=== PATIENT | female | born 1970 | race Caucasian/White ===

== ENCOUNTER → 2016-06-08 | Outpatient (CLI) | payer BC ==
[2016-05-11 09:07] VITALS: BP 128/72
== END ==
LOC: LAB 15:20
PROVIDERS: ATTEND Nurse Practitioner Family
DX: R30.0 Dysuria (principal)
CPT/HCPCS: 87086

== ENCOUNTER → 2016-09-29 | Outpatient (CLI) | payer BC ==
[2016-05-11 09:07] VITALS: BP 128/72
--- NOTE | 2016-09-29 13:03 | MG ---
HISTORY: SCREENING Comparison: 01/18/2011 FINDINGS: Bilateral CC and MLO projections of the right and left breast were obtained. Scattered fibroglandul ar tissue is seen to be present. No significant architectural distortion, mass or clustered microca lcifications can be observed to suggest malignancy. No skin thickening or nipple retraction is appr eciated. No pathological lymphadenopathy can be identified. IMPRESSION: NO RADIOGRAPHIC EVIDENCE OF MALIGNANCY. ACR CATEGORY I - NEGATIVE EXAM. FOLLOW-UP EXAM 1 YEAR. Diagnostic CAD was utilized and reviewed. * 0 (ZERO) - ASSESSMENT INCOMPLETE; ADDITIONAL IMAGING IS NEEDED. * 1/ (ONE) - NEGATIVE. * 2/II (TWO) - BENIGN FINDINGS. * 3/III (THREE) - PROBABLY BENIGN FINDING; SHORT INTERVAL FOLLOW-UP SUGGESTED. * 4/IV (FOUR) - SUSPICIOUS ABNORMALITY; BIOPSY SHOULD BE CONSIDERED. * 5/V - HIGHLY SUSPICIOUS OF MALIGNANCY; BIOPSY SHOULD BE PERFORMED. A NEGATIVE X-RAY REPORT SHOULD NOT DELAY BIOPSY IF A DOMINANT OR CLINICALLY SUSPICIOUS MASS IS PRESENT; 4 TO 8 PERCENT OF CANCERS ARE NOT IDENTIFIED BY X-RAY. A NEG ATIVE REPORT MAY REINFORCE THE CLINICAL IMPRESSION. ADENOSIS AND DENSE BREASTS MAY OBSCURE AN UNDER LYING NEOPLASM. Reported By:
--- NOTE | 2016-09-29 13:37 | US ---
HISTORY: Thyroid nodule Study: Ultrasound of the thyroid Comparison: November 12, 2014 Technique: Multiple zuniga scale images of the thyroid were obtained. Findings: The right lobe of the thyroid measures 5.5 x 2.4 x 1.8 cm. An approximate 1.8 x 2.1 x 2.6 cm cyst/cy stic appearing nodule is noted within the right lobe of the thyroid and on prior exam measured 1.3 x 2.1 cm. The larger size of the right lobe of the thyroid when compared to the left is at least in p art due to the above-mentioned cyst/nodule. The left lobe of the thyroid measures 2.8 x 1.6 x 1.2 cm. The left lobe of the thyroid is relatively homogeneous in appearance without definite evidence of focal discrete nodule. The isthmus measures 0.5 cm. IMPRESSION: 1. Asymmetric enlargement of the right lobe of the thyroid as discussed above. 2. Right-sided cyst/cystic appearing nodule as noted above. Reported By:
== END ==
LOC: RAD 10:08
PROVIDERS: ATTEND Nurse Practitioner Family
DX: Z12.31 Encounter for screening mammogram for malignant neoplasm of breast (principal); E04.1 Nontoxic single thyroid nodule
CPT/HCPCS: 76536; 77067

== ENCOUNTER → 2017-03-08 | Outpatient (CLI) | payer OTHER ==
[2016-05-11 09:07] VITALS: BP 128/72
[2017-03-08 10:11] LABS: BASOPHILS # (AUTO) 0.1 X10^3/uL (0.0-0.1); BASOPHILS % (AUTO) 0.7 % (0.2-1.0); EOSINOPHILS # (AUTO) 0.2 x10^3/uL (0.0-0.2); EOSINOPHILS % (AUTO) 3.1 % (0.9-2.9); HEMATOCRIT 40.7 % (36.0-47.0); HEMOGLOBIN 13.8 g/dL (12.0-16.0); LYMPHOCYTES # (AUTO) 1.9 X10^3/uL (1.3-2.9); LYMPHOCYTES % (AUTO) 25.5 % (21.0-51.0); MEAN CORPUSCULAR HEMOGLOBIN 30.3 pg (27.0-34.0); MEAN CORPUSCULAR VOLUME 89.1 fL (80.0-100.0); MEAN PLATELET VOLUME 8.3 fL (7.4-11.0); MONOCYTES # (AUTO) 0.5 x10^3/uL (0.3-0.8); NEUTROPHILS # (AUTO) 4.9 x10^3/uL (2.2-4.8); NEUTROPHILS % (AUTO) 64.7 % (42.0-75.0); PLATELET COUNT 249 X10^3/uL (150.0-450.0); RED BLOOD COUNT 4.57 X10^6/uL (3.5-5.4); RED CELL DISTRIBUTION WIDTH 12.6 % (11.6-16.5); WHITE BLOOD COUNT 7.6 X10^3/uL (3.6-10.0)
[2017-03-08 10:30] LABS: ALANINE AMINOTRANSFERASE 26 Units/L (12-78); ALBUMIN 3.4 g/dL (3.4-5.0); ALKALINE PHOSPHATASE 81 Units/L (46-116); ASPARTATE AMINO TRANSFERASE 8 Units/L (15-37); BLOOD UREA NITROGEN 11 mg/dL (7-18); CALCIUM 8.6 mg/dL (8.5-10.1); CARBON DIOXIDE 30.1 mmol/L (21-32); CHLORIDE 104 mmol/L (98-107); CHOL/HDL RATIO 3.8 (0.0-5.0); CHOLESTEROL 175 mg/dL (0-200); CREATININE 0.72 mg/dL (0.55-1.02); FREE T4 (FREE THYROXINE) 0.92 ng/dL (0.76-1.46); HDL CHOLESTEROL 46 mg/dL (40-60); SODIUM 139 mmol/L (136-145); TOTAL PROTEIN 7.3 g/dL (6.4-8.2); TRIGLYCERIDES 66 mg/dL (0-150); TSH (3RD GENERATION) 1.694 uIU/mL (0.358-3.74); eGFR BLACK RACES > 60 (>60); eGFR NON BLACK RACES > 60 (>60)
== END ==
LOC: LAB 09:47
PROVIDERS: ATTEND Nurse Practitioner Family
DX: I10 Essential (primary) hypertension (principal); E04.1 Nontoxic single thyroid nodule; E78.4 Other hyperlipidemia
CPT/HCPCS: 36415; 80053; 80061; 84439; 84443; 84481; 85025

== ENCOUNTER → 2017-03-09 | Outpatient (CLI) | payer OTHER ==
[2016-05-11 09:07] VITALS: BP 128/72
--- NOTE | 2017-03-09 15:11 | US ---
Examination: Thyroid ultrasound. Clinical History: Thyroid nodule. Technique: Real-time grayscale ultrasound was used to evaluate the thyroid. Comparison: 09/29/2016. Findings: The right lobe measures 4.5 x 2.2 x 1.6 cm and has an associated circumscribed cystic appearing nodul e measuring 3.0 x 2.2 x 2.0 cm mass associated with the lower pole, likely representing a benign declan oid cyst. The lesion may have mildly enlarged since the prior examination. The left lobe measures 3.9 x 1.4 x 1.4 cm and is heterogeneous in appearance, with 2 new subtle solid -appearing hypoechoic nodules seen at the lower pole measuring 0.9 x 0.6 cm and 0.6 x 0.4 cm in size. Due to the small size of the lesions, a follow-up thyroid ultrasound is recommended in 6 months to r e-evaluate. The isthmus measures 6 mm in the AP diameter and is mildly prominent, but is otherwise unremarkable. Impression: 1. Multinodular goiter, as described above. There are new solid-appearing hypoechoic nodules associat ed with the left lobe of the thyroid measuring subcentimeter in size. Due to the small size of the le sions, a follow-up thyroid ultrasound is recommended in 6 months to re-evaluate. Reported By:
== END ==
LOC: RAD 09:00
PROVIDERS: ATTEND Nurse Practitioner Family
DX: E04.1 Nontoxic single thyroid nodule (principal)
CPT/HCPCS: 76536